=== PATIENT | male | born 1960 | race Caucasian/White ===

== ENCOUNTER 2016-08-05 12:03 | Observation (INO) | payer OTHER ==
[2016-08-05] MEDS ORDERED: ceFAZolin 2 GM/DEXTROSE 100 ML IV ONE (13:30)
[2016-08-05] MEDS ORDERED: PROPOFOL/EMULSION 500 MG/50 ML BOTTLE IV ONE (13:37)
[2016-08-05] MEDS ORDERED: fentaNYL 250 MCG/5 ML INJ ONE (15:21)
[2016-08-05] MEDS ORDERED: DEXAMETHASONE 4 MG/ML VIAL ONE (15:22)
[2016-08-05] MEDS ORDERED: SUGAMMADEX SODIUM 200 MG/2 ML VIAL IVP ONE (15:22)
[2016-08-05] MEDS ORDERED: ONDANSETRON 4 MG/2 ML VIAL ONE (15:22)
[2016-08-05] MEDS ORDERED: RANITIDINE 50 MG/2 ML VIAL ONE (15:22)
[2016-08-05] MEDS ORDERED: ROCURONIUM 50 MG/5 ML VIAL ONE ×2 (15:22→16:23)
[2016-08-05] MEDS ORDERED: METOCLOPRAMIDE 10 MG/2 ML VIAL ONE (15:22)
[2016-08-05] MEDS ORDERED: MIDAZOLAM 2 MG/2 ML VIAL ONE ×2 (15:26→16:00)
[2016-08-05] MEDS ORDERED: THROMBIN (BOVINE) 20,000 UNIT SPRAY TP ONE ×2 (16:36→16:38)
[2016-08-05] MEDS ORDERED: CALCIUM CHLORIDE 1 GM/10 ML INJ ONE (16:46)
[2016-08-05] MEDS ORDERED: PROPOFOL 200 MG/20 ML VIAL ONE (17:03)
--- NOTE | 2016-08-05 17:08 | POSTOPPROG ---
Post Op Note Date of Operation: 08/05/16 Surgeon: Mirza Granados Book Cleaner: RFEUGIO Chiu MS Anesthesiologist: Ondina Olivares MD Anesthesia: GET(General Endotracheal) Pre-op Diagnosis: mediastinal mass Post-op Diagnosis: metastatic lung cancer Procedure: right fiberoptic bronchoscopy, right mediastinoscopy with LN biopsy Findings: full size right paratracheal LN Inf/Abcess present in the surg proc area at time of surgery?: No EBL: 50-100 Complications: none Specimen(s): right paratracheal lymph node (frozen) to path
[2016-08-05] MEDS ORDERED: ONDANSETRON 4 MG/2 ML VIAL IVP PRN (17:14)
[2016-08-05] MEDS ORDERED: OXYCODONE/APAP 5/325 TAB PO PRN (17:14)
[2016-08-05] MEDS ORDERED: ACETAMINOPHEN 325 MG TAB PO PRN (17:14)
[2016-08-05] MEDS ORDERED: HYDROmorphONE/DILAUDID 1 MG/ML SYR IVP PRN (17:14)
[2016-08-05] MEDS ORDERED: D5W 1/2 NS 1,000 ML IV SCH ×2 (17:15→17:45)
[2016-08-05] MEDS ORDERED: BUPIVACAINE/EPI 0.5% 30 ML SDV ONE (17:23)
--- NOTE | 2016-08-05 20:58 | GOP ---
[f rep st] OPERATIVE REPORT DATE OF OPERATION: 08/05/2016 SURGEON: Mirza Granados MD PREOPERATIVE DIAGNOSIS: Lung mass and mediastinal adenopathy. POSTOPERATIVE DIAGNOSIS: Probable lung cancer. PROCEDURE PERFORMED: Fiberoptic bronchoscopy. FINDINGS: clear bronchial segments DESCRIPTION OF PROCEDURE: Patient was taken to the operating room, where he received satisfactory general endotracheal anesthesia by Dr. Olivares. He was placed in the supine position in general endotracheal intubation through the endotracheal tube. A fiberoptic bronchoscope was introduced. The tracheobronchial tree was examined. There were no endobronchial lesions identified and there was no significant purulent discharge from the right lower lobe or right middle lobe on evaluation. The scope was removed. He tolerated the procedure well. There were no complications. /[id number]/MODL MTDD
--- NOTE | 2016-08-05 21:28 | GOP ---
[f rep st] OPERATIVE REPORT DATE OF OPERATION: 08/05/2016 SURGEON: Mirza Granados MD PREOPERATIVE DIAGNOSIS: Right lung mass and mediastinal adenopathy. POSTOPERATIVE DIAGNOSIS: Metastatic lung cancer. Final pathology pending. PROCEDURE PERFORMED: Mediastinoscopy and biopsy. FINDINGS: The patient was found to have firm lymph nodes along the right peritracheal area in the m ediastinum. He had a fair amount of bleeding secondary to his use of Xarelto, making dissection and biopsies somewhat difficult. DESCRIPTION OF PROCEDURE: The patient was taken to the operating room where he received satisfactor y general endotracheal anesthesia Dr. Olivares. He was placed in the supine position, prepped and demetrio ped in the usual sterile fashion. A low collar incision was made and carried through to the platysm a. Strap muscles were in the midline. The pretracheal fascia was incised and using blunt dissection we extended down along the anterior wall of the trachea into the mediastinum. The media stinoscope was introduced. Adequate visualization was obtained. Careful dissection was then done a nd firm lymph nodes were encountered along the right peritracheal area. One of these was dissected c ompletely freely and removed and sent to Pathology for frozen section. Other biopsies were taken of the more distal lymph node, but there was a significant amount of bleeding from just minor dissecti on which prevented taking multiple other lymph node samples. Hemostasis was assured with electrocau tito. Some topical thrombin was placed in the wound and eventually some hemostatic powder and hemos tasis was fully obtained. The wound was irrigated. After that, the mediastinoscope was removed. T he strap muscles were approximated with 3-0 Vicryl. The platysma was closed with running 3-0 Vicryl suture. The wound was infiltrated with 0.5% Marcaine. Skin was closed with a 4-0 Monocryl subcuti cular stitch. Blood loss was less than 30 cc. There were no complications. He was taken to the re covery room in good condition. /[id number]/MODL
[2016-08-06 05:24] LABS: HEMATOCRIT 37.5 % (40.0-51.0); HEMOGLOBIN 12.5 g/dL (13.7-17.5)
[2016-08-06 05:37] LABS: ANION GAP 7 mEq/L (8-16); CALCIUM 8.1 mg/dL (8.5-10.4); CARBON DIOXIDE 22 mEq/l (22-31); CHLORIDE 108 mEq/L (97-110); CREATININE 0.7 mg/dL (0.7-1.3); GLOMERULAR FILTRATION RATE > 60; GLUCOSE 147 mg/dL (70-100); POTASSIUM 4.4 mEq/L (3.5-5.2); SODIUM 137 mEq/L (134-144)
[2016-08-06 07:29] VITALS: BP 137/72; PULSE 94; RESP 18; TEMP 98.4; O2SAT 92
--- NOTE | 2016-08-06 07:48 | SOAPPROG ---
SOAP Progress Note Assessment/Plan: Assessment: POD # 1 s/p mediastinoscopy for cancer Doingwell DC home F/U Dr. Alves next week F/U Dr. Granados next week S: Feeling well O: Incision cdi, swelling left of mediastinoscopy Plan: 08/06/16 07:45 Objective: Vital Signs Temp Pulse Resp BP Pulse Ox 36.9 C 94 18 137/72 H 92 08/06/16 07:28 08/06/16 07:28 08/06/16 07:28 08/06/16 07:28 08/06/16 07:28 Laboratory Results 08/06/16 04:25 08/06/16 04:25 08/05/16 08/06/16 08/07/16 05:59 05:59 05:59 Intake Total 3113 Output Total 120 Balance 2993 ICD10 Worksheet Patient Problems: Problems Problem Status Onset Adenocarcinoma Acute - ICD10 Problem Qualifiers (1) Adenocarcinoma
== END 2016-08-06 09:32 | disposition home or self-care (01) ==
LOC: F2W 12:03
PROVIDERS: ADMIT Surgery; ATTEND Surgery
PROC: 07B74ZX Excision of Thorax Lymphatic, Percutaneous Endoscopic Approach, Diagnostic (ICD-10-PCS; principal; 2016-08-05 14:00)
PROC: 0BJ08ZZ Inspection of Tracheobronchial Tree, Via Natural or Artificial Opening Endoscopic (ICD-10-PCS; principal; 2016-08-05 14:00)
DX: C77.1 Secondary and unspecified malignant neoplasm of intrathoracic lymph nodes (principal); C34.91 Malignant neoplasm of unspecified part of right bronchus or lung
CPT/HCPCS: 31622; 39402; G0378; J0690; J1100; J2250; J2405; J2704; J2765; J2780; J3010